=== PATIENT | male | born 1965 | race Caucasian/White ===

== ENCOUNTER 2017-08-04 19:18 | Emergency (ER) | payer OTHER ==
[~2017-08-04] VITALS: Ht 170.2 cm; Wt 112.6 kg
[2017-08-04 20:08] LABS: MCH 30.5 PG (29.0-34.0); MCHC 33.8 G/DL (30.0-36.0); MCV 90.2 FL (86-99); MEAN PLAT.VOLUME 10.7 uM^3 (9.0-12.4); PLATELET COUNT 225 K/uL (156-360); RBC DIS.WIDTH-CV 13.3 % (11.8-14.6); RBC DIS.WIDTH-SD 44.2 % (39-53); RED BLOOD COUNT 4.99 M/uL (4.00-5.50); WHITE BLOOD COUNT 13.8 K/uL (4.1-10.2)
[2017-08-04 20:22] LABS: CHLORIDE 107 mEq/L (99-109); POTASSIUM 4.1 mEq/L (3.7-5.4); SODIUM 141 mEq/L (136-147)
[2017-08-04 20:24] LABS: GLUCOSE 133 mg/dL (70-99)
[2017-08-04 20:25] LABS: ANION GAP 13 MEQ/L (2-14)
[2017-08-04 20:26] LABS: TOTAL BILIRUBIN 0.5 mg/dL (0.0-1.0)
[2017-08-04 20:27] LABS: ALKALINE PHOSPHATASE 60 IU/L (3-129)
[2017-08-04 20:28] LABS: GFR ESTIMATE (CALCULATED) > 59 mL/min/
[2017-08-04 20:29] LABS: UREA NITROGEN (BUN) 14 mg/dL (9-23)
[2017-08-04 20:37] LABS: ADD MIUA? YES; BILIRUBIN NEGATIVE; BLOOD MODERATE; COLOR YELLOW ((YELLOW)); GLUCOSE (STRIP) NEGATIVE; KETONES NEGATIVE; LEUKOCYTES NEGATIVE; NITRITE NEGATIVE; PROTEIN (STRIP) 100; UROBILINOGEN 0.2 MG/DL (0.2-1.0)
[2017-08-04 20:41] LABS: BACTERIA NONE SEEN /HPF; EPITHELIAL CELLS NONE SEEN /HPF; GRANULAR CASTS 0-5 /LPF; HYALINE CASTS 0-5 /LPF; MUCUS 3+ /LPF; RED BLOOD CELLS 0-5 /HPF (0-5); UCUL ADDED? NO; WHITE BLOOD CELLS 0-5 /HPF (0-5)
[2017-08-04] MEDS ORDERED: BENTYL20 MG PO (21:48)
[2017-08-04] MEDS ORDERED: ZOFRAN ODT4 MG PO (21:48)
[2017-08-04 22:14] VITALS: BP 172/98
== END 2017-08-04 22:15 | disposition home or self-care (01) ==
LOC: RME 19:18 → EME 19:18 → RME 22:15
DX: R11.2 Nausea with vomiting, unspecified (principal); R19.7 Diarrhea, unspecified; T62.0X1A Toxic effect of ingested mushrooms, accidental (unintentional), initial encounter; I10 Essential (primary) hypertension
CPT/HCPCS: 80053; 81003; 85027; 99281; 99284; J0500; J2405; J7030